=== PATIENT | male | born 1960 | race Caucasian/White ===

== ENCOUNTER 2017-09-21 23:16 | Emergency (ER) | payer OTHER, SELFPAY ==
[2017-09-21 23:17] VITALS: BP 159/88; PULSE 93; RESP 16; TEMP 36.7; O2SAT 98; BMI 32.1
[2017-09-21 23:30] VITALS: BP 139/78; PULSE 87; RESP 17; O2SAT 99
[2017-09-21 23:30] LABS: Bedside Glucose 88 mg/dL (70-110)
--- NOTE | 2017-09-21 23:33 | EKG12_ITS ---
Test Reason : CP Blood Pressure : / mmHG Vent. Rate : 090 BPM Atrial Rate : 090 BPM P-R Int : 120 ms QRS Dur : 092 ms QT Int : 374 ms P-R-T Axes : 030 -03 024 degrees QTc Int : 457 ms Normal sinus rhythm Normal ECG Confirmed by KUMAR BLANCO, ASHLEY ([id number]), photography editor KARIS SCHULTE ([id number]) on 09/24/2017 10:38:19 AM Referred By: HTEA Confirmed By:ASHLEY HEATH MD
--- NOTE | 2017-09-21 23:33 | CT_ITS ---
STUDY: CTA NECK WITH CONTRAST REASON FOR EXAM: Male, 56 years old. WEAKNESS,CHEST PAIN,RT SIDED FACIAL NUMBNESS AND TINGLING PT STATES MAJOR STROKE IN NOV AND TIA IN DEC WHICH LEFT HIM WITH RT SIDED WEAKNESS RADIATION DOSAGE (If Supplied By Facility): CTDIvol = ( 39.25 ) mGy, DLP = ( 1557.50 ) mGycm TECHNIQUE: CT angiography with multi-detector data acquisition was performed from the aortic arch to the skull base following intravenous administration of 100ML ml of Isovue 370 contrast. MIP images were reconstructed from the axial data set. Post-processing of the angiographic images was performed, with multiplanar reformation and 3D reconstruction. Individualized dose optimization techniques were used for this CT. COMPARISON: None. FINDINGS: AORTIC ARCH: Normal visualized aortic arch. Normal origins of the brachiocephalic, left common carotid, and left subclavian arteries. RIGHT CAROTID ARTERIES: Normal right common carotid artery (CCA). There is mild atherosclerotic plaque formation with minimal narrowing of the right carotid bulb. Normal origin of the right internal carotid (ICA) artery without a hemodynamically significant stenosis. Normal visualized cervical portion of the right internal carotid artery. Normal origin of the right external carotid artery (ECA). LEFT CAROTID ARTERIES: Normal left common carotid artery (CCA). There is mild atherosclerotic plaque formation with minimal narrowing of the left carotid bulb. There is complete occlusion of the origin of the left internal carotid artery without demonstrated arterial flow. Normal visualized cervical portion of the left internal carotid artery. Normal origin of the left external carotid artery (ECA). VERTEBRAL ARTERIES: Normal bilateral vertebral arteries. CT/CTA Neck W/WO Contrast IMPRESSION: Normal right cervical carotid and vertebral arteries. There is complete occlusion of the origin of the left internal carotid artery without demonstrated arterial flow. Electronically Signed: Zoya Feliz MD at 1:34 EST Tel , Service support ,
--- NOTE | 2017-09-21 23:33 | CT_ITS ---
STUDY: CTA OF THE BRAIN REASON FOR EXAM: Male, 56 years old. WEAKNESS,,CHEST PAIN,RT SIDED FACIAL NUMBNESS AND TINGLING PT STATES HE HAD A MAJOR CVA IN JUN. AND THEN A TIA IN JUL. WHICH LEFT HIM WITH RT SIDED WEAKNESS RADIATION DOSAGE (If Supplied By Facility): CTDIvol = ( 39.25 ) mGy, DLP = ( 1557.50 ) mGycm TECHNIQUE: CT angiography was performed with a multi-detector CT scanner. Data acquisition was obtained from the skull base through the vertex following intravenous administration of ml of . MIP images were reconstructed from the axial data set. Post-processing of the angiographic images was performed, with multiplanar reformation and 3D reconstruction. Individualized dose optimization techniques were used for this CT. COMPARISON: None. FINDINGS: There is occlusion of the left internal carotid artery with reconstitution of the supraclinoid segment by retrograde flow in the ophthalmic artery. Normal right cavernous carotid artery with a normal supraclinoid bifurcation. Normal right A1 segments of the anterior cerebral artery. There is non-visualization of the left A1 segment of the anterior cerebral arteries consistent with either aplastic development or an occlusion. Normal intact anterior communicating artery (ACOM). Normal bilateral A2 segments of the anterior cerebral arteries. Normal right M1 and M2 segments of the middle cerebral arteries, with a normal M1 bifurcation. Normal left M1 and M2 segments of the middle cerebral arteries, with a normal M1 bifurcation. There is non-visualization of the right posterior communicating artery (PCOM). There is a persistent origin of the left posterior cerebral artery with absence of the posterior communicating artery (PCOM). Normal bilateral vertebral arteries. Normal basilar artery with a normal basilar bifurcation. The visualized bilateral superior cerebellar (SCA) arteries are normal. There is absence of the left P1 segment of the posterior cerebral arteries with a normal right P1 segment. Normal visualized bilateral P2 and P3 segments of the posterior cerebral arteries. There is no demonstrated aneurysm of the [place]. There is no demonstrated abnormality of the visualized brain. CT/CTA Head W/WO Contrast IMPRESSION: Normal [place] without a demonstrated aneurysm or hemodynamically significant stenosis. There is occlusion of the left internal carotid artery with reconstitution of the supraclinoid segment by retrograde flow in the ophthalmic artery. Electronically Signed: Zoya Feliz MD at 1:31 EST Tel , Service support ,
[2017-09-21 23:42] VITALS: O2SAT 100
[2017-09-21 23:51] LABS: Absolute Lymphocyte Count 3.43 X10^3/ul (0.83-4.51); Basophil# 0.06 X10^3/uL; Basophil% 0.6 % (0-1); Eosinophil# 0.63 X10^3/uL; Eosinophils% 6.3 % (0-5); Hemoglobin 11.5 g/dl (13.0-16.5); Lymphocyte # 3.43 X10^3/ul (4.0); Lymphocyte % 34.1 % (19-41); Mean Corp Hgb Conc 33.8 g/gl (32-36); Mean Corpuscular Hgb 31.2 pg (27.0-32.0); Mean Corpuscular Volume 92.1 fL (80-94); Monocyte# 0.91 X10^3/uL; Neutrophil # 5.01 X10^3/uL (2.7-7.7); Neutrophil % 49.7 % (47-70); Platelet Count 204 K/mm3 (150-450); RBC Distribution Width CV 12.5 % (11.6-14.6); RBC Distribution Width SD 40.8 fl (35.1-43.9); Red Blood Count 3.69 M/mm3 (4.6-6.2); White Blood Count 10.1 K/mm3 (4.4-11.0)
[2017-09-21 23:53] LABS: POSITIVE COUNT NO; POSITIVE DIFFERENTIAL NO; POSITIVE MORPHOLOGY NO
[2017-09-22] VITALS (9 sets, daily range): BP systolic 109–135; BP diastolic 72–87; PULSE 73–93; RESP 13–19; O2SAT 98–100
[2017-09-22 00:01] LABS: Prothrombin Time (Protime)PT. 12.3 SECONDS (11.7-14.9)
[2017-09-22 00:02] LABS: Partial Thromboplast Time 26.9 Seconds (24.1-36.2)
[2017-09-22 00:03] LABS: Anion Gap 8 (5-15); BUN 15 mg/dL (7-18); BUN/Creat Ratio 18.5 RATIO (10-20); Chloride 103 mmol/L (98-107); Creatinine, Serum 0.81 mg/dL (0.70-1.30); EST Glomerular Filtration Rate 105 mL/min (>60); Est Glom Filt Rate - Afr Amer 127 mL/min (>60); Estimated Creatinine Clearance 97.47 ml/min; Glucose 100 mg/dL (70-110); Potassium 3.8 mmol/L (3.5-5.1); Sodium Level 140 mmol/L (136-145)
--- NOTE | 2017-09-22 00:05 | RAD_ITS ---
STUDY: X-RAY CHEST REASON FOR EXAM: Male, 56 years old. Chest pain TECHNIQUE: Single AP portable view of the chest. COMPARISON: None. FINDINGS: The lungs are clear and expanded. There is no demonstrated pleural abnormality. Normal size heart. Normal mediastinum and gutierrez. Normal visualized pulmonary arteries. Normal visualized aortic arch and descending thoracic aorta. Normal visualized thoracic spine. Normal visualized ribs, clavicles, and shoulders. There is no demonstrated abnormality of the visualized soft tissue structures of the upper abdomen. RAD/Chest 1 View IMPRESSION: Normal x-ray examination of the chest. Electronically Signed: Zoya Feliz MD at 1:00 EST Tel , Service support ,
--- NOTE | 2017-09-22 02:23 | ED.VISSUMM ---
- ER Visit Summary Date of Service: 09/22/17 Chief Complaint: [] Strokelike symptoms History of Present Illness: The patient is a 56 M [] complaining of onset of strokelike symptoms 45 minutes ago with increased weakness to the right upper extremity and right lower extremity. She reports she had a stroke July 13, 2017 and was seen originally at the [place] emergency department and was subsequently transferred to the [facility] emergency department where he was reportedly hospitalized for 4 days. He does provide diagnostic imaging results that indicates a left sided internal carotid artery occlusion. He does report some slight residual upper extremity weakness from the stroke. Reports he was then seen again August 05, 2017 at [place] emergency department where he was diagnosed with a mini stroke and discharged from the emergency department. He presents today with an unusual affect and an inconsistent history and physical exam. Physical Examination: [] Afebrile, vital signs stable. Middle-age male in no acute distress. NIH stroke scale of 1 for mild right flattening of the nasolabial fold. He is able to hold both right and left upper extremity for 5 seconds without drift. He is inconsistently able to bus van driver my right hand on command. He provides a weak attempt to bus van driver my hand however when he is asked to move his hand or perform a task he is able to bus van driver considerably harder, like when I asked him to sit up he is able to grab the bed rail with good force and strength and pull himself to an upright position. He is able to hold the right and left lower extremity up separately for 10 seconds without drift. No significant findings on the remainder of the physical exam. Test Results: [] CTA of the head and neck reveals no new acute pathology with the finding previously reported of the left internal carotid artery occlusion. Laboratory work was normal. Chest x-ray negative. EKG shows normal sinus rhythm, rate 90 without ischemic changes. Troponin negative. Emergency Department Course and Treatment: [] Patient evaluated for reported strokelike symptoms. Laboratory and diagnostic testing was negative. At the end of the evaluation patient requested narcotic pain medication. This request was denied. Patient was instructed to take Tylenol for pain and follow-up with his primary care physician. Treatment Plan: [] Follow-up with primary care physician. Disposition: [] Discharge, stable Impression: [] Strokelike symptoms History of CVA This note was generated with SmartestK[employer]ation software. It may contain incorrect words, spelling, and punctuation that were not noted in review of the chart prior to signing ED Disposition - Plan for ED Patient: Chief Complaint: Neuro S/Sx Referrals: [facility] Doctor,Out of [Primary Care Provider] -
--- NOTE | 2017-09-22 02:28 | ED.DCSUM_ITS ---
- ER Visit Summary Date of Service: 09/22/17 Chief Complaint: [] Strokelike symptoms History of Present Illness: The patient is a 56 M [] complaining of onset of strokelike symptoms 45 minutes ago with increased weakness to the right upper extremity and right lower extremity. She reports she had a stroke July 13, 2017 and was seen originally at the [place] emergency department and was subsequently transferred to the [facility] emergency department where he was reportedly hospitalized for 4 days. He does provide diagnostic imaging results that indicates a left sided internal carotid artery occlusion. He does report some slight residual upper extremity weakness from the stroke. Reports he was then seen again August 05, 2017 at [place] emergency department where he was diagnosed with a mini stroke and discharged from the emergency department. He presents today with an unusual affect and an inconsistent history and physical exam. Physical Examination: [] Afebrile, vital signs stable. Middle-age male in no acute distress. NIH stroke scale of 1 for mild right flattening of the nasolabial fold. He is able to hold both right and left upper extremity for 5 seconds without drift. He is inconsistently able to broth setter my right hand on command. He provides a weak attempt to broth setter my hand however when he is asked to move his hand or perform a task he is able to broth setter considerably harder, like when I asked him to sit up he is able to grab the bed rail with good force and strength and pull himself to an upright position. He is able to hold the right and left lower extremity up separately for 10 seconds without drift. No significant findings on the remainder of the physical exam. Test Results: [] CTA of the head and neck reveals no new acute pathology with the finding previously reported of the left internal carotid artery occlusion. Laboratory work was normal. Chest x-ray negative. EKG shows normal sinus rhythm, rate 90 without ischemic changes. Troponin negative. Emergency Department Course and Treatment: [] Patient evaluated for reported strokelike symptoms. Laboratory and diagnostic testing was negative. At the end of the evaluation patient requested narcotic pain medication. This request was denied. Patient was instructed to take Tylenol for pain and follow-up with his primary care physician. Treatment Plan: [] Follow-up with primary care physician. Disposition: [] Discharge, stable Impression: [] Strokelike symptoms History of CVA This note was generated with [employer] software. It may contain incorrect words, spelling, and punctuation that were not noted in review of the chart prior to signing ED Disposition - Plan for ED Patient: Chief Complaint: Neuro S/Sx Referrals: [facility] Doctor,Out of [Primary Care Provider] -
--- NOTE | 2017-09-22 02:28 | ED.DEP ---
ED Disposition - Plan for ED Patient: Disposition: Home or Assisted Living Chief Complaint: Neuro S/Sx Instructions: ED Transient Ischemic Attack Referrals: [facility] Doctor,Out of [Primary Care Provider] -
--- NOTE | 2017-09-22 02:37 | ED.RN ---
IV DC'ED, CATHETER INTACT, SMALL GAUZE DRESSING PLACED. DISCHARGE INSTRUCTIONS GIVEN TO AND REVIEWED WITH PATIENT, PATIENT DENIES QUESTIONS OR CONCERNS AND VOICES UNDERSTANDING OF DISCHARGE INSTRUCTIONS. PT AMBULATES OUT OF ROOM WITHOUT DIFFICULTY.
== END 2017-09-22 02:38 | disposition home or self-care (01) ==
PROVIDERS: Emergency Provider Emergency Medicine
DX: I69.331 Monoplegia of upper limb following cerebral infarction affecting right dominant side (principal); I10 Essential (primary) hypertension; E78.00 Pure hypercholesterolemia, unspecified; Z79.899 Other long term (current) drug therapy
CPT/HCPCS: 70496; 70498; 71045; 80048; 82962; 84484; 85025; 85610; 85730; 93005; 96360; 96361; 99284; J7030; J7040; Q9967; A4216

== ENCOUNTER 2019-12-21 13:27 | Observation (INO) | payer OTHER, SELFPAY ==
[2019-12-21] VITALS (14 sets, daily range): BP systolic 105–135; BP diastolic 65–74; PULSE 66–88; RESP 12–18; TEMP 36.6–37.1; O2SAT 95–100; BMI 29.7; BMI 30.1
--- NOTE | 2019-12-21 14:18 | CT_ITS ---
STUDY: CT BRAIN WITHOUT CONTRAST REASON FOR EXAM: Male, 59 years old. PT STATED DOUBLE VISION IN RT EYE, WORSE TODAY, HX OF 2 STROKES PRIOR RADIATION DOSAGE (If Supplied By Facility): CTDIvol = ( 44.99 ) mGy, DLP = ( 796.11 ) mGycm TECHNIQUE: Transaxial CT imaging of the brain was performed without administration of intravenous contrast material. Individualized dose optimization techniques were used for this CT. COMPARISON: September 22, 2017 FINDINGS: There is cerebral atrophy with widening of the extra-axial spaces and ventricular dilatation. There are areas of decreased attenuation within the white matter tracts of the supratentorial brain, consistent with microvascular disease changes. Again noted is a left parieto-occipital encephalomalacia and gliosis, consistent with prior insult. There is no intracranial hemorrhage. There are no findings of an acute ischemic infarction. Normal soft tissue structures. Normal visualized paranasal sinuses. CT/Brain/Head without Contrast IMPRESSION: No acute intracranial abnormality. Chronic left parieto-occipital infarct. Electronically Signed: Efe Caba MD at 14:56 EDT Tel , Service support ,
--- NOTE | 2019-12-21 14:18 | EKG12_ITS ---
Test Reason : NEURO SX Blood Pressure : / mmHG Vent. Rate : 074 BPM Atrial Rate : 074 BPM P-R Int : 128 ms QRS Dur : 090 ms QT Int : 382 ms P-R-T Axes : 030 005 034 degrees QTc Int : 424 ms Normal sinus rhythm Normal ECG Confirmed by ROSSI FAGAN ([id number]), senior editor KARIS SCHULTE ([id number]) on 12/28/2019 2:53:44 PM Referred By: NOEMI Confirmed By:ROSSI FAGAN
--- NOTE | 2019-12-21 14:20 | ED.DCSUM_ITS ---
History of Present Illness Chief Complaint: Neuro S/Sx Narrative: This patient is a 59-year-old male who presents with double vision. Unfortunately he is a very poor informant and it is difficult to obtain a clear history. Initially he reported that he had a visual field cut. He then stated that he just had double vision which resolved if he covered one eye. He initially stated that this occurred at 10:30 PM last night and has intermittently occurred since then. He also began to talk about some right sided weakness. [facility]. He then later changed this and stated that he has right-sided weakness and numbness from prior stroke in 2017 but that this is not a new symptom and in fact he has no weakness currently or last night. He then stated that [facility] actually [facility] weeks ago and has been having intermittent double vision for at least 2 weeks. He ultimately stated that currently he has had no weakness at all in the last couple of weeks but he does have chronic decreased sensation on the right side which is at baseline. No fevers vomiting chest pain shortness of breath. He states he is just here for CAT scan. Past Medical History - Allergies and Home Meds Allergies/Adverse Reactions: Allergies No Known Allergies Allergy (Verified 12/21/19 13:34) Primary Care Physician: NOT,DEFINED [NON-STAFF] - Past Medical History: - - Hypertension, hyperlipidemia, history of stroke Smoking Status: Former smoker Review of Systems All systems negative except as indicated General: Denies: Fever Eyes: Reports: Diplopia ENT: Denies: Bilateral ear pain Cardiovascular: Denies: Chest pain Respiratory: Denies: Dyspnea Gastrointestinal: Denies: Abdominal pain, Nausea, Vomiting, Diarrhea Musculoskeletal: Denies: Myalgias, Arthralgias Skin: Denies: Rash Neurological: Reports: Parasthesia, Numbness. Denies: Headache Hematologic: Denies: Easy bruising Allergy: Denies: Uticaria Physical Exam Vital Signs/Narrative: Vital Signs Temp Pulse Resp BP Pulse Ox 12/21/19 13:28 98.7 F 66 16 135/69 H 100 Inital Vital Signs reviewed: Yes General: Well nourished Head: Normocephalic, Atraumatic Eyes: EOMI ENT: Moist mucous membranes Neck: Supple Cardiovascular: Regular rate, Regular rhythm Respiratory: No distress, CTA bilaterally Abdomen: Soft, Nontender Skin: Normal color Neurological: Alert, - - NIH stroke scale is 1 due to decreased sensation on the right side, this is old, normal strength, clear speech, no visual field cut Psychological: Normal affect Diagnostic/Tx/Re-eval Impressions Brain CT 12/21/19 14:18 IMPRESSION: No acute intracranial abnormality. Chronic left parieto-occipital infarct. Electronically Signed: Efe Caba MD at 14:56 EDT Tel , Service support , 12/21/19 14:18 Brain/Head without Contrast [CT] Stat Laboratory Results 12/21/19 12/21/19 12/21/19 14:30 14:30 14:30 WBC 9.5 RBC 3.71 L Hgb 11.4 L Hct 35.0 L MCV 94.3 H MCH 30.7 MCHC 32.6 RDW Std Deviation 45.0 H RDW Coeff of Elvira 13.1 Plt Count 227 MPV 10.0 Immature Gran % (Auto) 0.600 Neut % (Auto) 64.8 Lymph % (Auto) 20.6 Mcdowell % (Auto) 7.9 Eos % (Auto) 5.6 H Baso % (Auto) 0.5 Absolute Neuts (auto) 6.2 Absolute Lymphs (auto) 1.96 Nucleated RBC % 0 PT 12.3 INR 1.0 APTT 26.5 Sodium 139 Potassium 4.2 Chloride 109 H Carbon Dioxide 26.0 Anion Gap 4 L BUN 12 Creatinine 1.25 Estim Creat Clear Calc 60.96 Est GFR (MDRD) Af Amer 77 Est GFR (MDRD) Non-Af 63 BUN/Creatinine Ratio 9.6 L Glucose 100 Calcium 9.2 Troponin I < 0.015 POC Glucose 12/21/19 15:08 WBC RBC Hgb Hct MCV MCH MCHC RDW Std Deviation RDW Coeff of Elvira Plt Count MPV Immature Gran % (Auto) Neut % (Auto) Lymph % (Auto) Mcdowell % (Auto) Eos % (Auto) Baso % (Auto) Absolute Neuts (auto) Absolute Lymphs (auto) Nucleated RBC % PT INR APTT Sodium Potassium Chloride Carbon Dioxide Anion Gap BUN Creatinine Estim Creat Clear Calc Est GFR (MDRD) Af Amer Est GFR (MDRD) Non-Af BUN/Creatinine Ratio Glucose Calcium Troponin I POC Glucose 90 - Medical Decision Making CT of the head shows old left infarct. EKG shows normal sinus rhythm at a rate of 74 with no acute ischemic changes and laboratory studies are unremarkable. Patient will require further evaluation for TIA or stroke likely to include MRI of the brain and vascular studies such as MRA versus carotid ultrasound. Patient discussed with the hospitalist and will be admitted. ED Disposition - Plan for ED Patient: Disposition: Acute Care [facility] Diagnosis: TIA (transient ischemic attack) Referrals: NOT,DEFINED [NON-STAFF] -
[2019-12-21 14:41] LABS: Absolute Lymphocyte Count 1.96 X10^3/uL (0.83-4.51); Absolute Neutrophil Count 6.2 X10^3/uL (2.0-7.7); Basophil# 0.05 X10^3/uL; Basophil% 0.5 % (0-1); Eosinophil# 0.53 X10^3/uL; Eosinophils% 5.6 % (0-5); Hemoglobin 11.4 g/dL (13.0-16.5); Lymphocyte # 1.96 X10^3/ul (4.0); Lymphocyte % 20.6 % (19-41); Mean Corp Hgb Conc 32.6 g/dL (32-36); Mean Corpuscular Hgb 30.7 pg (27.0-32.0); Mean Corpuscular Volume 94.3 fL (80-94); Monocyte# 0.75 X10^3/uL; Monocyte% 7.9 % (0-10); NRBC Flagged by Analyzer 0 % (0-5); Neutrophil # 6.16 X10^3/uL (2.7-7.7); Neutrophil % 64.8 % (47-70); Platelet Count 227 K/mm3 (150-450); RBC Distribution Width CV 13.1 % (11.6-14.6); Red Blood Count 3.71 M/mm3 (4.6-6.2); White Blood Count 9.5 K/mm3 (4.4-11.0)
[2019-12-21 14:57] LABS: Partial Thromboplast Time 26.5 Seconds (24.1-36.2); Prothrombin Time (Protime)PT. 12.3 SECONDS (11.7-14.9)
[2019-12-21 14:59] LABS: Anion Gap 4 (5-15); BUN 12 mg/dL (7-18); BUN/Creat Ratio 9.6 RATIO (10-20); Calcium,Total 9.2 mg/dL (8.5-10.1); Chloride 109 mmol/L (98-107); Creatinine, Serum 1.25 mg/dL (0.70-1.30); EST Glomerular Filtration Rate 63 mL/min (>60); Est Glom Filt Rate - Afr Amer 77 mL/min (>60); Estimated Creatinine Clearance 60.96 ml/min; Glucose 100 mg/dL (74-106); Potassium 4.2 mmol/L (3.5-5.1); Sodium Level 139 mmol/L (136-145)
[2019-12-21 15:16] LABS: Bedside Glucose 90 mg/dL (70-110)
--- NOTE | 2019-12-21 15:32 | ED.RN ---
CALLED [facility] FOR ADMISSION; SPOKE WITH MINDI WHO STATED THAT THE PATIENT ALSO HAS [facility] INSURANCE, SHE WAS VERY RUDE AND STATED DO YOU REALLY THINK ITS IN THE BEST INTEREST OF THE PT TO SEND THEM OUT [facility] THAN KEEP THEM WITH YOU REPORTED TO DR FRANKLIN WHO SAID TO PAGE THE HOSPITALIST
--- NOTE | 2019-12-21 15:55 | PCM.HP.STD ---
Problem List (1) Hypertension Status: Chronic Qualifiers: Hypertension type: essential hypertension Qualified Code(s): I10 - Essential (primary) hypertension (2) Hyperlipidemia Status: Chronic Qualifiers: Hyperlipidemia type: unspecified Qualified Code(s): E78.5 - Hyperlipidemia, unspecified (3) TIA (transient ischemic attack) Status: Acute History of Present Illness Date of Admission: 12/21/19 Chief Complaint: Right sided weakness - 1 day Patient is a poor historian: The patient is a 59 year old M with PMHx of TIA, 2 strokes, pretension who comes in with complaints of right-sided blurred vision ongoing for 2 weeks. He is been having blurred vision in his right eye that comes on and off. No associated aggravating or relieving factors. This is not associated with any tingling or numbness or any weakness in his extremities or chest pain or palpitations. He had a similar presentation in 2017 when he had his first stroke. His care was in the [place]. Over the past 2 weeks, he had called into his primary care doctor in [place] and was told to go to the emergency department a couple of days ago. At that time he thought it was not bad enough until last night around 10 PM when it recurred again. He took a couple of aspirin and went to bed. He woke up this morning with persistent symptoms. He called the [place] and was told to come to the emergency department. Vitals in the ED showed temperature 98.7 F, heart rate 66, blood pressure 135/69, respiratory rate was 16, SPO2 was 100% on room air. WBC count was 9.5, hemoglobin 11.4, platelet count 227, INR 1.0. BMP was remarkable for sodium 139, potassium 4.2, chloride 109, bicarbonate 26, BUN 12, creatinine 1.25. His previous creatinine in the system was 0.81. CT scan of the brain showed no acute intracranial abnormality. It showed chronic left parietal?occipital infarct. Past Medical History Past Medical History (Chronic Problems): Chronic Problems Hypertension (Chronic) Hyperlipidemia (Chronic) Allergies No Known Allergies Allergy (Verified 12/21/19 13:34) Home Medications: Ambulatory Orders Medication Instructions Recorded Duloxetine HCl 30 mg PO DAILY 09/21/17 Atorvastatin Calcium [Lipitor] 40 mg PO QHS 12/21/19 Cholecalciferol (Vitamin D3) 2,000 unit PO DAILY 12/21/19 [Vitamin D3] Clopidogrel Bisulfate [Clopidogrel] 75 mg PO DAILY 12/21/19 Ezetimibe [Zetia] 10 mg PO DAILY 12/21/19 Lisinopril 5 mg PO DAILY 12/21/19 Topiramate [Topamax] 125 mg PO BID 12/21/19 Surgical History: - - s/p loop recorder Psychiatric History: - - Unclear psych history; cannot tell why he is on Cymbalta and topiramate Lives: With Family Smoking Status: Former smoker Tobacco Use: Non-smoker Alcohol: None Drugs: None - *Family History Maternal History Items: Unknown Paternal History Items: Unknown Review of Systems Constitutional: Denies: Anorexia, Chills, Fever, Malaise, Weakness, Weight Change, Fatigue Eyes: Reports: Blurred vision, Double vision. Denies: Cataracts, Conjunctivae Inflammation, Drainage, Eyelid Inflammation, Pain, Redness, Vision Change HEENT: Denies: Difficulty Swallowing, Head Aches, Hearing Changes, Sinus Congestion, Sinus Drainage Cardiovascular: Denies: Chest Pain, Claudication, Chest Tightness, Heaviness, Light Headedness, Orthopnea, Palpitations, Paroxysmal Noc. Dyspnea Respiratory: Denies: Cough, Shortness of Breath, Shortness of breath at rest, Shortness of breath upon exertion, Sputum production Gastrointestinal: Denies: Abdominal Pain, Hematemesis, Hematochezia, Nausea, Vomiting Genitourinary: Denies: Dysuria Musculoskeletal: Denies: Joint Pain, Joint stiffness, Joint swelling, Joint Tenderness Skin: Denies: Rash, Wounds Neurological: Denies: Numbness, Tingling, Focal weakness Psychiatric: Denies: Anxiety, Depression, Homicidal Ideations, Suicidal Ideations Hematologic/ Lymphatic: Denies: Easy Bruising, Easy Bleeding VTE Information - Inpt Only VTE Present on Admission: No VTE Pharm Prophylaxis ordered?: Yes Patient Problems: Active and Suspected Problems TIA (transient ischemic attack) (Acute) - Physical Exam Vitals/I&O's: Vital Signs Temp Pulse Resp BP Pulse Ox 98.7 F 74 12 128/66 H 99 12/21/19 13:28 12/21/19 15:30 12/21/19 15:30 12/21/19 15:30 12/21/19 15:30 Oxygen Delivery Method Room Air Weight: 86.183 kg Body Mass Index (BMI) 29.7 Finger Stick Blood Glucose 90 General: Alert, Oriented x3, Cooperative, No apparent distress, - - appears dishevelled HEENT: Atraumatic, PERRLA, EOMI, Normocephalic Oral: Moist Mucosa Neck: Supple Lungs: Clear to auscultation Cardiovascular: Regular rate, Regular Rhythm, Normal S1, Normal S2, No murmurs Abdomen: Bowel Sounds Present, Soft, Non Tender, Non-Distended, No Hepato-splenomegaly Extremities: No edema Skin: No rashes Musculoskeletal: No Tenderness to Palpation of Joints or Extremities Lymphatic: No Cervical, Supraclavicular, or Inguinal Adenopathy Neurological: Cranial nerves II-XII grossly intact, Neuro grossly intact Psych/Mental Status: Normal Affect, Appropriate Laboratory Results 12/21/19 14:30: WBC 9.5, RBC 3.71 L, Hgb 11.4 L, Hct 35.0 L, MCV 94.3 H, MCH 30.7, MCHC 32.6, RDW Std Deviation 45.0 H, RDW Coeff of Elvira 13.1, Plt Count 227, MPV 10.0, Immature Gran % (Auto) 0.600, Neut % (Auto) 64.8, Lymph % (Auto) 20.6, [place] % (Auto) 7.9, Eos % (Auto) 5.6 H, Baso % (Auto) 0.5, Absolute Neuts (auto) 6.2, Absolute Lymphs (auto) 1.96, Nucleated RBC % 0 12/21/19 14:30: PT 12.3, INR 1.0, APTT 26.5 12/21/19 14:30: Sodium 139, Potassium 4.2, Chloride 109 H, Carbon Dioxide 26.0, Anion Gap 4 L, BUN 12, Creatinine 1.25, Estim Creat Clear Calc 60.96, Est GFR (MDRD) Af Amer 77, Est GFR (MDRD) Non-Af 63, BUN/Creatinine Ratio 9.6 L, Glucose 100, Calcium 9.2, Troponin I < 0.015 12/21/19 15:08: POC Glucose 90 Assessment/Plan All Active Problems TIA (transient ischemic attack) (Acute) 59 year old M with PMHx of TIA, 2 strokes, Hypertension who comes in with complaints of right-sided blurred vision ongoing for 2 weeks. He is been having blurred vision in his right eye that comes on and off. 1. Acute recurrent blurry vision of the right eye, suggestive of TIA/amaurosis fugax History of recurrent CVA/TIAs Patient's initial CT of the brain showed chronic left parieto-occipital infarct Patient reports history of loop recorder and cannot have MRI/MRA Continue with stroke protocol, carotid ultrasound, 2D echo, lipid profile, HgbA1c Continue on aspirin, Plavix, statin Telemetry neurology consult 2. Hyperlipidemia, on statin, ezetimibe Lipid profile in am 3. Hypertension, on lisinopril We will hold lisinopril for now to allow for permissive hypertension in case this is acute CVA 4. Unclear history of anxiety/depression/bipolar disorder [facility] 5. DVT PPx- Lovenox PA Inpatient E&M: [id number] Subs Hosp L2
--- NOTE | 2019-12-21 16:44 | ECHOD_ITS ---
Reason For Study: TIA/CVA Procedure This was a 2D Doppler, Color Flow transthoracic echocardiogram. The study was technically difficult. Exam performed portable in patient room. Left Ventricle Normal LV size. Left ventricular systolic function is normal. The estimated ejection fraction is 65 %. Transmitral doppler flow suggestive of impaired relaxation of left ventricle. No regional wall motion abnormalities noted. Right Ventricle Normal RV size. Normal systolic function. Atria Normal left atrium. Normal right atrium. No doppler evidence for ASD. Bubble contrast study negative for right to left interatrial shunt. Mitral Valve There is no mitral annular calcification. Normal mitral valve. Trivial mitral valve insufficiency. Tricuspid Valve Normal tricuspid valve. Trivial tricuspid valve insufficiency. Unable to estimate RV systolic pressure/pulmonary artery pressure due to technically difficult study. Aortic Valve Trisinus/trileaflet aortic valve. Normal aortic valve. Pulmonic Valve The pulmonic valve is not well visualized. Great Vessels Normal sized aortic root. Pericardium/Pleural No pericardial effusion. Medication Performed a rapid injection of agitated mix of 9 cc saline and 1cc air to assess for atrial septal defect. MMode/2D Measurements & Calculations LVIDd: 4.7 cm IVSd: 1.1 cm Ao root diam: 3.1 cm LVIDs: 2.9 cm LVPWd: 1.1 cm RVDd: 2.8 cm FS: 37.3 % LAV(MOD-bp): 62.6 ml LA A4 area: 19.6 cm2 LA dimension(2D): 3.6 cm LAV(MOD-bp) Indexed: 31.7 ml/m2 LAV(MOD-sp2): 68.8 ml LAV(MOD-sp4): 54.2 ml RA A4 area: 16.1 cm2 Time Measurements MV dec time: 0.23 sec Doppler Measurements & Calculations MV E max jose l: 84.0 cm/sec Lat Peak E' Jose L: 10.5 cm/sec Med Peak E' Jose L: 8.2 cm/sec MV A max jose l: 93.9 cm/sec E/E' lat: 8.0 E/E' med: 10.3 MV E/A: 0.89 Ao V2 max: 144.0 cm/sec LV V1 max: 105.6 cm/sec PA V2 max: 100.0 cm/sec Ao max P.3 mmHg LV V1 max P.5 mmHg Interpretation Summary The study was technically difficult. Left ventricular systolic function is normal. The estimated ejection fraction is 65 %. Trivial mitral valve insufficiency. Trivial tricuspid valve insufficiency. Unable to estimate RV systolic pressure/pulmonary artery pressure due to technically difficult study. Transmitral doppler flow suggestive of impaired relaxation of left ventricle Bubble contrast study negative for right to left interatrial shunt. Ordering Physician: Kristal Rodríguez Referring Physician: [facility] Performed By: Sharri Benoit RDCS, RVT
--- NOTE | 2019-12-21 16:44 | CDU_ITS ---
Reason For Study: TIA Rt. Velocities/BP Lt. Velocities/BP Prox CCA 154/31.6 cm/sec. Prox CCA 108.3/7.9 cm/sec. Mid CCA 104.7/26.1 cm/sec. Mid CCA 82.7/10.2 cm/sec. Dist CCA 103.5/28.6 cm/sec. Dist CCA 73.9/11.3 cm/sec. Prox ICA 101/29.8 cm/sec. Prox ECA 121.1/13.3 cm/sec. Mid ICA 144.8/53.5 cm/sec. Lt. Vert. 60.7/16.2 cm/sec. Dist ICA 178.5/68.7 cm/sec. Rt. ICA/CCA = 1.7. Prox ECA 152.1/7.9 cm/sec. Rt. Vert. 53.1/14.6 cm/sec. Right Extracranial There is homogeneous, smooth atherosclerotic plaque noted in the right common carotid artery. There is heterogeneous, irregular atherosclerotic plaque noted in the right internal carotid artery. There is no significant atherosclerotic plaque noted in the right external carotid artery. Antegrade flow is noted in the right vertebral artery. Left Extracranial There is homogeneous, smooth atherosclerotic plaque noted in the left common carotid artery. Known occlusion left ICA. There is intimal thickening but no significant atherosclerotic plaque noted in the left external carotid artery. Antegrade flow is noted in the left vertebral artery. Procedure Carotid Duplex [id number]. Exam performed portable in patient room. Interpretation Summary Calcific irregular plaque at the proximal right internal carotid. 50-69% stenosis right internal carotid <50% stenosis right external carotid Occluded left internal carotid with reversal of flow in the distal right internal carotid. Report comments that this is a known occlusion <50% stenosis left external carotid Patent, antegrade bilateral vertebrals Ordering Physician: Kristal Rodríguez Referring Physician: [facility] Performed By: Lourdes Gómez RVT
[2019-12-21 17:53] LABS: Hemoglobin A1c 5.7 % (4.2-6.3)
[2019-12-21] MEDS: Atorvastatin Calcium 40 MG Tablet PO (21:07)
[2019-12-22] VITALS (9 sets, daily range): BP systolic 105–125; BP diastolic 49–72; PULSE 70–94; RESP 14–18; TEMP 36.6–36.8; O2SAT 97–100; BMI 30.1
[2019-12-22] MEDS: Acetaminophen 325 MG Tablet 650 MG PO (00:05)
[2019-12-22 07:52] LABS: Absolute Lymphocyte Count 1.67 X10^3/uL (0.83-4.51); Absolute Neutrophil Count 4.6 X10^3/uL (2.0-7.7); Basophil# 0.06 X10^3/uL; Basophil% 0.8 % (0-1); Eosinophil# 0.49 X10^3/uL; Eosinophils% 6.5 % (0-5); Hemoglobin 11.2 g/dL (13.0-16.5); Lymphocyte # 1.67 X10^3/ul (4.0); Lymphocyte % 22.2 % (19-41); Mean Corpuscular Hgb 30.4 pg (27.0-32.0); Mean Corpuscular Volume 94.9 fL (80-94); Mean Platelet Vol. 10.2 fl (6.2-12.0); Monocyte% 9.3 % (0-10); NRBC Flagged by Analyzer 0 % (0-5); Neutrophil # 4.58 X10^3/uL (2.7-7.7); Neutrophil % 60.9 % (47-70); Platelet Count 212 K/mm3 (150-450); RBC Distribution Width CV 13.1 % (11.6-14.6); Red Blood Count 3.69 M/mm3 (4.6-6.2); White Blood Count 7.5 K/mm3 (4.4-11.0)
[2019-12-22 08:17] LABS: ALB/GLOB Ratio 1.5 RATIO (0.9-2.4); AST(SGOT) 19 U/L (15-37); Alanine Aminotransfer ALT/SGPT 24 U/L (16-61); Albumin, Serum 3.8 g/dL (3.2-5.0); Alkaline Phosphatase 114 U/L (45-117); Anion Gap 4 (5-15); BUN 13 mg/dL (7-18); Chloride 110 mmol/L (98-107); Cholesterol 139 mg/dL (200); Creatinine, Serum 1.08 mg/dL (0.70-1.30); EST Glomerular Filtration Rate 75 mL/min (>60); Est Glom Filt Rate - Afr Amer 91 mL/min (>60); Estimated Creatinine Clearance 70.55 ml/min; Globulin 2.5 g/dL (2.2-4.2); Glucose 99 mg/dL (74-106); High Density Lipoprotein 46 mg/dL; Potassium 4.4 mmol/L (3.5-5.1); Protein, Total 6.3 g/dL (6.4-8.2); Sodium Level 139 mmol/L (136-145); Triglycerides 217 mg/dL; Very Low Density Lipoprotein 43 mg/dL (5-40)
[2019-12-22] MEDS: Aspirin E.C. 81 MG Tablet PO (08:50)
[2019-12-22] MEDS: Clopidogrel Bisulfate 75 MG Tablet PO (08:50)
[2019-12-22] MEDS: Ezetimibe 10 MG Tablet PO (08:51)
[2019-12-22] MEDS: Lisinopril 5 MG Tablet PO (08:51)
[2019-12-22] MEDS: Enoxaparin 40 MG/0.4 ML Syringe SC (08:52)
--- NOTE | 2019-12-22 10:12 | CASEMGMT ---
SW completed a PHQ 9 with patient as he had a Stroke. He scored a 3 which indicates minimal depression. Raissa MCKEON MSW
--- NOTE | 2019-12-22 11:12 | MRI_ITS ---
STUDY: MRI BRAIN WITHOUT CONTRAST REASON FOR EXAM: Male, 59 years old. TIA/CVA, CONFUSION, VISION CHANGES RT EYE, H/A. Prior CVA 2017 TECHNIQUE: Standardized multiplanar fat and water weighted pulse sequences were obtained. COMPARISON: 12/21/2019 CT of the head FINDINGS: There is mild cerebral atrophy with widening of the extra-axial spaces and ventricular dilatation. There are a limited number of small white matter hyperintensities, distributed throughout the deep white matter tracts of the cerebral hemispheres, consistent with mild chronic white matter ischemic changes. Again noted is the left occipital encephalomalacia and gliosis. Left coronal radiata gliosis is also noted. Normal bilateral basal ganglia. Normal thalami. There is no extra-axial fluid accumulation. Normal flow voids within the major intracranial circulation suggesting patency by spin echo criteria. Normal sella turcica, pituitary gland, infundibular stalk, optic chiasm and hypothalamus. Normal tectal plate and pineal gland. Normal midbrain, nieves and medulla. Normal cerebellum. Normal basal cisterns. MRI/Brain without Contrast IMPRESSION: No acute intracranial abnormality. Chronic left occipital infarct. Electronically Signed: Efe Caba MD at 15:49 EDT Tel , Service support ,
--- NOTE | 2019-12-22 11:13 | MRI_ITS ---
STUDY: MRA OF THE HEAD WITHOUT CONTRAST REASON FOR EXAM: Male, 59 years old. TIA/CVA, CONFUSION, VISION CHANGES RT EYE, H/A. Prior CVA 2017. TIA/CVA, CONFUSION, VISION CHANGES RT EYE, H/A. Prior CVA 2017 TECHNIQUE: 3-D [id number] (TOF) imaging was performed with MIPs. The study was performed unenhanced. COMPARISON: September 22, 2017 CT of the head FINDINGS: Patent right cavernous carotid artery. There is occlusion of the left ICA. There is reconstitution at the level of the supraclinoid segment. There is a small left MCA. Findings were present on the prior CTA dated September 22, 2017. Patent right A1 segments of the anterior cerebral artery. There is hypoplastic development of the left A1 segment of the anterior cerebral arteries with an atretic but intact artery. Unremarkable anterior communicating artery (ACOM) region. Normal bilateral A2 segments of the anterior cerebral arteries. Patent right M1 and M2 segments of the middle cerebral arteries, with a unremarkable M1 bifurcation. There is non-visualization of the right posterior communicating artery (PCOM). There is a prominent left posterior communicating artery (PCOM). Patent basilar artery with a normal basilar bifurcation. Patent bilateral posterior cerebral arteries. MRI/MRA Head ONLY without Contrast IMPRESSION: Chronic left ICA occlusion. Diminutive left MCA. Electronically Signed: Efe Caba MD at 16:09 EDT Tel , Service support ,
--- NOTE | 2019-12-22 11:13 | MRI_ITS ---
STUDY: MRA NECK WITH AND WITHOUT CONTRAST REASON FOR EXAM: Male, 59 years old. TIA/CVA, RT EYE VISION CHANGES, HEADACHES TECHNIQUE: 3-D uytb-[id number]-mpnneo (TOF) imaging was performed in an 1.5 T MRI scanner. IV DOTAREM 17ML was administered for the contrast enhanced images. COMPARISON: CTA 09/21/2017 FINDINGS: RIGHT CAROTID ARTERIES: Normal right common carotid artery (CCA). Normal right common carotid bulb. Normal origin of the right internal carotid (ICA) artery without a hemodynamically significant stenosis. Normal visualized cervical portion of the right internal carotid artery. Normal origin of the right external carotid artery (ECA). LEFT CAROTID ARTERIES: Normal left common carotid artery (CCA). Normal left common carotid bulb. There is complete occlusion of the origin of the left internal carotid artery without demonstrated arterial flow. Normal visualized cervical portion of the left internal carotid artery. Normal origin of the left external carotid artery (ECA). VERTEBRAL ARTERIES: Normal antegrade flow within the bilateral vertebral artery without a hemodynamically significant stenosis. MRI/MRA Neck WITH and W/O Contrast IMPRESSION: 1. No right carotid stenosis. 2. Left internal carotid artery occlusion. 3. Patent vertebral arteries bilaterally. Electronically Signed: Bharat Villalobos MD at 17:12 EDT Tel , Service support ,
[2019-12-22 11:51] LABS: Erythrocyte Sedimentation Rate 2 mm/hr (0-20)
[2019-12-22 11:57] LABS: Lactic Acid 1.2 mmol/L (0.4-1.9)
--- NOTE | 2019-12-22 12:31 | PCA ---
Addendum entered by Sophia Rothman 12/22/19 13:03: Nurse from [place] called back and got more information, states they seen him in July for same compliant. She stated that she will talk to the doctor about getting him in and they will make contact with patient to schedule apt. Original Note: Left a message at the [facility] [employer] desk, option 3, in regards to scheduling an apt. Left the number at the desk for them to call back to schedule.
[2019-12-22 12:39] LABS: Thyroid Stim Hormone (TSH) 0.97 uIU/mL (0.358-3.74)
[2019-12-22] MEDS: Topiramate 100 MG Tablet PO (12:46)
[2019-12-22] MEDS: Topiramate 25 MG Tablet PO (12:47)
[2019-12-22 13:01] LABS: HIV - WCH Non-Reactive (Nonreactive)
--- NOTE | 2019-12-22 17:18 | DCINST_ITS ---
- Discharge Diagnoses Current Active Problems: Current Active and Chronic Problems TIA (transient ischemic attack) (Acute) Hypertension (Chronic) Hyperlipidemia (Chronic) Reason(s) for Visit for Discharge Instructions: Right eye visual disturbances You will use the following diet at home:: Cardiac Your food should be the consistency of: Regular Your liquids should be the consistency of: Regular/Thin Discharge Activity: Return to Normal Activity Allergies/Adverse Reactions: Allergies No Known Allergies Allergy (Verified 12/21/19 13:34) Medications to take at Discharge Duloxetine HCl 30 mg PO DAILY 09/21/17 Atorvastatin Calcium [Lipitor] 40 mg PO QHS 12/21/19 Cholecalciferol (Vitamin D3) [Vitamin D3] 2,000 unit PO DAILY 12/21/19 Clopidogrel Bisulfate [Clopidogrel] 75 mg PO DAILY 12/21/19 Ezetimibe [Zetia] 10 mg PO DAILY 12/21/19 Lisinopril 5 mg PO DAILY 12/21/19 Topiramate [Topamax] 125 mg PO BID 12/21/19 Primary Care Physician: NOT,DEFINED [NON-STAFF] - Please follow up with your Primary Care Physician in: within 1-2 weeks Test Results: Test results from this visit will be discussed in further detail at your follow- up appointment, if applicable. Please Follow Up With: [facility], eye clinic for right eye blindness Proposed Discharge Date: 12/22/19
--- NOTE | 2019-12-22 17:19 | PCM.DC.SUM ---
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 Chronic left parieto-occipital infarct. Electronically Signed: Efe Caba MD at 14:56 EDT Tel , Service support , Brain MRI 12/22/19 11:12 IMPRESSION: No acute intracranial abnormality. Chronic left occipital infarct. Electronically Signed: Efe Caba MD at 15:49 EDT Tel , Service support , Head MRA 12/22/19 11:13 IMPRESSION: Chronic left ICA occlusion. Diminutive left MCA. Electronically Signed: Efe Caba MD at 16:09 EDT Tel , Service support , Neck MRA 12/22/19 11:13 IMPRESSION: 1. No right carotid stenosis. 2. Left internal carotid artery occlusion. 3. Patent vertebral arteries bilaterally. Electronically Signed: Bharat Villalobos MD at 17:12 EDT Tel , Service support , Tele-neurology Operations: None Procedures: 2-D Echocardiogram Summary of Care Provided: The patient is a 59 year old M past medical history of TIA, previous strokes, hypertension who comes in right sided blurred vision and weakness. Patient was a poor historian and had complained of blurred vision in his right eye that comes on and off. This started after his first stroke in 2017. He said he has seen a doctor in [place] the last 2 weeks. Collaborative history taking from his shows the patient has some cognitive impairment and has not seen any eye doctor but has been having blurred vision in his right eye. His work-up in the hospital was that for TIA/stroke. Initially patient said he could not have an MRI because he was told by the [facility] that he could not have an MRI because of his loop recorder. Telemetry neurology consult was placed and recommended radiology looks into whether he could have the MRI or not. Radiology confirmed the patient could have his MRI. MRI of the head as well as MRA of the head and neck was negative for acute abnormalities. Patient's triglycerides was 217, cholesterol was 139, LDL was 50, HDL was 46. 2D- echo showed an EF of 65%, trivial valvular heart disease. TSH was normal at 0.97. HbA1c was 5.7. HIV 1 and 2 antibodies were nonreactive. At the time of discharge, patient C-ANCA and P-ANCA as well as RPR and Lyme total antibody was pending. Patient was asked to follow-up with his primary doctor within 1 to 2 weeks. An attempt was made to get him established [facility], [facility] were made to [facility] appointment center. The retinal specialist nurse called back and said they will call the patient and follow-up with an appointment. Subjective: The day of discharge, patient was seen and examined. Denied any new complaints. Still had blurred vision in her right eye. Objective: Physical exam: General: Alert, Oriented x3, Cooperative, No apparent distress, - - appears dishevelled HEENT: Atraumatic, PERRLA, EOMI, Normocephalic Oral: Moist Mucosa Neck: Supple Lungs: Clear to auscultation Cardiovascular: Regular rate, Regular Rhythm, Normal S1, Normal S2, No murmurs Abdomen: Bowel Sounds Present, Soft, Non Tender, Non-Distended, No Hepato-splenomegaly Extremities: No edema Skin: No rashes Musculoskeletal: No Tenderness to Palpation of Joints or Extremities Lymphatic: No Cervical, Supraclavicular, or Inguinal Adenopathy Neurological: Cranial nerves II-XII grossly intact, Neuro grossly intact Psych/Mental Status: Normal Affect, Appropriate - Physical Exam Vitals/I&O's: Vital Signs Temp Pulse Resp BP Pulse Ox 98.1 F 94 14 125/70 H 98 12/22/19 12:40 12/22/19 14:05 12/22/19 12:40 12/22/19 12:40 12/22/19 12:40 Oxygen Delivery Method Room Air Weight: 86.4 kg Body Mass Index (BMI) 30.1 Finger Stick Blood Glucose 90 Intake and Output for Last 24 Hours 12/20/19 12/21/19 12/22/19 23:59 23:59 23:59 Intake Total 500 / 500 Balance 500 / 500 Laboratory Results 12/21/19 14:30: Hemoglobin A1c 5.7 12/22/19 07:37: WBC 7.5, RBC 3.69 L, Hgb 11.2 L, Hct 35.0 L, MCV 94.9 H, MCH 30.4, MCHC 32.0, RDW Std Deviation 45.0 H, RDW Coeff of Elvira 13.1, Plt Count 212, MPV 10.2, Immature Gran % (Auto) 0.300, Neut % (Auto) 60.9, Lymph % (Auto) 22.2, [place] % (Auto) 9.3, Eos % (Auto) 6.5 H, Baso % (Auto) 0.8, Absolute Neuts (auto) 4.6, Absolute Lymphs (auto) 1.67, Nucleated RBC % 0 12/22/19 07:37: Sodium 139, Potassium 4.4, Chloride 110 H, Carbon Dioxide 25.0, Anion Gap 4 L, BUN 13, Creatinine 1.08, Estim Creat Clear Calc 70.55, Est GFR (MDRD) Af Amer 91, Est GFR (MDRD) Non-Af 75, BUN/Creatinine Ratio 12.0, Glucose 99, Calcium 9.0, Total Bilirubin 0.40, AST 19, ALT 24, Alkaline Phosphatase 114, Total Protein 6.3 L, Albumin 3.8, Globulin 2.5, Albumin/Globulin Ratio 1.5, Triglycerides 217 H, Cholesterol 139, LDL Cholesterol 50, VLDL Cholesterol 43 H, HDL Cholesterol 46 12/22/19 11:20: TSH 0.97 12/22/19 11:20: HIV 1&2 Antibody Non-Reactive 12/22/19 11:20: Lactic Acid 1.2 12/22/19 11:20: ESR 2 12/22/19 11:20: c-ANCA Antibody Pending, p-ANCA Antibody Pending 12/22/19 11:20: RPR Pending 12/22/19 11:20: Lyme Total Antibody Pending Current Medications Acetaminophen (Tylenol) 650 mg PO Q6H PRN PRN PRN Reason: Pain Score 1-10/Temp > 100.7 F Last Admin: 12/22/19 00:05 Dose: 650 mg Documented by: Aspirin (Ecotrin) 81 mg PO DAILY@0800 [facility] Last Admin: 12/22/19 08:50 Dose: 81 mg Documented by: Atorvastatin Calcium (Lipitor) 40 mg PO QHS [facility] Last Admin: 12/21/19 21:07 Dose: 40 mg Documented by: Cholecalciferol (Vitamin D (25mcg)) 2,000 unit PO DAILY [facility] Last Admin: 12/22/19 08:51 Dose: 2,000 unit Documented by: Clopidogrel Bisulfate (Plavix) 75 mg PO DAILY [facility] Last Admin: 12/22/19 08:50 Dose: 75 mg Documented by: Ezetimibe (Zetia) 10 mg PO DAILY [facility] Last Admin: 12/22/19 08:51 Dose: 10 mg Documented by: Enoxaparin Sodium (Lovenox) 40 mg SC DAILY [facility] Last Admin: 12/22/19 08:52 Dose: 40 mg Documented by: Hydralazine HCl (Apresoline Iv) 5 mg IV Q30M PRN PRN Reason: to maintain BP goals Sodium Chloride () 250 mls @ 15 mls/hr IV .[id number] PRN PRN Reason: Saline Flush Sodium Chloride () 250 mls @ 15 mls/hr IV .[id number] PRN PRN Reason: Additional IVPB Infusion Lisinopril (Zestril) 5 mg PO DAILY [facility] Last Admin: 12/22/19 08:51 Dose: 5 mg Documented by: Ondansetron HCl (Zofran) 4 mg IV Q8H PRN PRN PRN Reason: NAUSEA/VOMITING Sodium Chloride () 10 - 40 ml IV UD PRN PRN Reason: SALINE FLUSH Topiramate (Topamax) 25 mg PO BID [facility] Last Admin: 12/22/19 12:47 Dose: 25 mg Documented by: Topiramate (Topamax) 100 mg PO BID [facility] Last Admin: 12/22/19 12:46 Dose: 100 mg Documented by: Discharge Diet: Low fat/ Low Cholesterol, 2000 mg Sodium Diet Discharge Activity: Return to Normal Activity Home Medications: Medications to take at Discharge Duloxetine HCl 30 mg PO DAILY 09/21/17 Atorvastatin Calcium [Lipitor] 40 mg PO QHS 12/21/19 Cholecalciferol (Vitamin D3) [Vitamin D3] 2,000 unit PO DAILY 12/21/19 Clopidogrel Bisulfate [Clopidogrel] 75 mg PO DAILY 12/21/19 Ezetimibe [Zetia] 10 mg PO DAILY 12/21/19 Lisinopril 5 mg PO DAILY 12/21/19 Topiramate [Topamax] 125 mg PO BID 12/21/19 Primary Care Physician: NOT,DEFINED [NON-STAFF] - Please follow up with your Primary Care Physician in: within 1-2 weeks Please Follow Up With: [facility] for right eye blindness Disposition: Home Minutes spent on discharge:: 40 Patient Condition:: Stable Medical Necessity - Tobacco Use Smoking Status: Former smoker Tobacco Use: Non-smoker Meaningful Use Info Meaningful Use Diagnoses (Choose all that apply): None applicable OBSV E&M: 01288 Observation care discharge
--- NOTE | 2019-12-22 17:23 | NURSING ---
Spoke with son Gonsalo about dc time and instructions f/u pcp spoke with also
[2019-12-23 16:07] LABS: Cytoplasmic Ab (C-ANCA) <1:20 titer (Neg:<1:20)
[2019-12-23 22:47] LABS: Perinuclear Ab (P-ANCA) <1:20 titer (Neg:<1:20)
[2019-12-23 22:49] LABS: Lyme AB/Total Immuno < 0.91 ISR (0.00-0.90)
[2019-12-24 01:35] LABS: Rapid Plasmin Reagin (RPR) NONREACTIVE (NONREACTIVE)
== END 2019-12-22 17:16 | disposition home or self-care (01) ==
LOC: ED 15:50 → PCU 16:39
PROVIDERS: Admitting Provider Internal Medicine; Emergency Provider Emergency Medicine; Visit Provider Internal Medicine
DX: H53.8 Other visual disturbances (principal); R53.1 Weakness; I10 Essential (primary) hypertension; H53.2 Diplopia; I69.351 Hemiplegia and hemiparesis following cerebral infarction affecting right dominant side; I69.398 Other sequelae of cerebral infarction; R20.8 Other disturbances of skin sensation; E78.5 Hyperlipidemia, unspecified; Z87.891 Personal history of nicotine dependence; Z79.899 Other long term (current) drug therapy; Z79.02 Long term (current) use of antithrombotics/antiplatelets
CPT/HCPCS: 36415; 70450; 70544; 70549; 70551; 80048; 80053; 80061; 82962; 83036; 83605; 84443; 84484; 85025; 85610; 85652; 85730; 86256; 86592; 86618; 86703; 92523; 93005; 93306; 93880; 94762; 96372; 97802; 99218; 99251; 99283; A9575; A4216; G0378; G0463

== ENCOUNTER 2020-03-22 17:40 | Emergency (ER) | payer OTHER, SELFPAY ==
[2019-12-22 17:42] VITALS: BMI 30.1
[2020-03-22 17:41] VITALS: BP 160/87; PULSE 114; RESP 18; TEMP 36.3; O2SAT 98; BMI 30.5
--- NOTE | 2020-03-22 17:55 | RAD_ITS ---
STUDY: X-RAY - RIGHT HAND REASON FOR EXAM: Male, 59 years old. RIGHT HAND INJURY AFTER CAR CRISTOBAL MOVED AND WHEEL FELL ONTO PT''S HAND TECHNIQUE: 3 view(s) of the hand. COMPARISON: None. FINDINGS: Normal radiocarpal articulation. Normal distal radioulnar joint. Normal visualized carpal bones. Normal carpal articulations Normal carpometacarpal articulation of the thumb. Normal second through fifth carpometacarpal joints. Normal metacarpi. Normal metacarpophalangeal joint of the thumb. Normal interphalangeal joint of the thumb. Normal proximal and distal phalanges of the thumb. Normal metacarpophalangeal joints of the second through fifth fingers. Normal proximal joints of the second through fifth fingers. Mild degenerative changes of the DIP joints Postsurgical changes status post resection of the mid shaft of the distal phalanx of the fourth digit. Soft tissue swelling of the dorsal surface of the mid hand RAD/Hand Min 3 Views IMPRESSION: Soft tissue swelling without evidence for acute fracture or dislocation Electronically Signed: Ramon Marsh MD at 18:13 EDT , Service support ,
[2020-03-22] MEDS: BACITRACIN 15 GM Tube 1 APPLIC TOPICAL (19:04)
[2020-03-22 19:40] VITALS: BP 155/79; PULSE 95; RESP 18; O2SAT 98
--- NOTE | 2020-03-22 20:11 | ED.VISSUMM ---
- ER Visit Summary Date of Service: 03/22/20 Chief Complaint: Right hand injury History of Present Illness: The patient is a 59 M who presents with right hand injury that occurred today. Patient states a wheel fell onto his hand while he was changing a tire. Patient states the pain is localized to the right hand over the third, fourth, and fifth metacarpal areas. Patient describes the pain is dull and aching. Patient states pain is worse with movement. Patient denies any paresthesias or weakness. Physical Examination: Vital signs are stable except for mild tachycardia of 114. Patient is afebrile. Patient is in no acute distress. Musculoskeletal exam reveals tenderness over the right hand. There is some edema and ecchymosis. There is also a 1.5 cm full-thickness curvilinear laceration on the palmar aspect of the right hand over the fourth metacarpal. There is moderate gapping of the wound margins. There is a superficial abrasion over the dorsal aspect of the right hand over the fourth metacarpal. There is no bony crepitance or step-off. Range of motion was limited in all motions of the right hand secondary to pain. Sensation was intact light touch in all digits. Capillary refill was less than 2 seconds in all digits. Test Results: Trays of the right hand were obtained. There is no acute fracture. These were interpreted by the radiologist and reviewed by myself. Emergency Department Course and Treatment: The wound was cleaned and irrigated with copious amounts of normal saline. The wound was anesthetized with 1% plain lidocaine locally. The wound was closed with 2 simple interrupted #4 -0 nylon sutures under sterile technique. Patient tolerated the procedure well. Bacitracin dressing was applied. Patient was instructed to keep the wound clean and dry. Patient was instructed to ice and elevate the right hand. Patient was instructed to take Tylenol or ibuprofen as needed for pain. Patient was instructed to follow-up with his primary care physician in 7 days for wound recheck and suture removal. Patient and family understood and were agreeable with the plan. All questions were answered. Disposition: Discharge home Impression: 1. Right hand laceration 2. Right hand contusion This note was generated with [employer] software. It may contain incorrect words, spelling, and punctuation that were not noted in review of the chart prior to signing ED Disposition - Plan for ED Patient: Disposition: Home or Assisted Living Diagnosis: Laceration of right hand, Contusion of right hand, initial encounter Instructions: ED HAND CONTUSION, ED Laceration Ext Sutr Stap Tape [facility] - 7 Days for suture removal
== END 2020-03-22 20:30 | disposition home or self-care (01) ==
PROVIDERS: Emergency Provider Emergency Medicine
DX: S61.411A Laceration without foreign body of right hand, initial encounter (principal); S60.221A Contusion of right hand, initial encounter; X58.XXXA Exposure to other specified factors, initial encounter
CPT/HCPCS: 12001; 73130; 99283